=== PATIENT | male | born 1985 | race African-American/Black ===

== ENCOUNTER 2025-02-28 10:06 | Emergency (ER) | payer MEDICAID ==
[~2025-02-28] VITALS: Ht 185.4 cm; Wt 82.0 kg
[2025-02-28 10:10] VITALS: O2SAT 99
[2025-02-28 12:08] LABS: BASOPHILS % 0.6 % (0.0-2.0); EOSINOPHILS % 0.3 % (0.0-5.0); HEMATOCRIT. 40.9 % (42.0-52.0); HEMOGLOBIN. 13.8 g/dL (14.0-18.0); LYMPHOCYTES % 21.2 % (20.0-50.0); MEAN PLATELET VOLUME 8.2 fl (7.4-10.4); MONOCYTES % 10.8 % (2.0-8.0); NEUTROPHILS % 67.1 % (40.0-76.0); PLATELET 206 x1000/uL (130-400); RED BLOOD CELL COUNT 4.10 mill/uL (4.7-6.1); RED CELL DISTRIBUTION WIDTH 13.6 % (11.6-14.6)
[2025-02-28 12:25] LABS: CREATININE 0.7 mg/dL (0.6-1.3)
[2025-02-28 12:26] LABS: UREA NITROGEN BLOOD 6 mg/dL (9-23)
[2025-02-28 12:27] LABS: ASPARTATE AMINOTRANSFERASE 29 IU/L (<34); TROPONIN I HIGH SENSITIVITY < 4 ng/L (3.0-53)
[2025-02-28 12:28] LABS: BILIRUBIN DIRECT 0.4 mg/dL (<=3.0); BILIRUBIN TOTAL 1.3 mg/dL (0.1-1.0); INR 1.0; PROTEIN TOTAL 7.4 g/dL (6.0-8.3)
[2025-02-28 18:06] LABS: TROPONIN I HIGH SENSITIVITY < 4 ng/L (3.0-53)
[2025-02-28 19:00] VITALS: BP 118/56; PULSE 66; RESP 18; TEMP 36.8; O2SAT 100
== END 2025-02-28 19:18 | disposition left against medical advice (07) ==
LOC: ER 10:06 → EDBEDREQ 18:08 → EDBEDREQTM 18:08 → ER 19:18 → CMPBEDREQ 03-01 07:25
DX: R07.9 Chest pain, unspecified (principal); R06.02 Shortness of breath
CPT/HCPCS: 36415; 71045; 80048; 80076; 83880; 84484; 85025; 85379; 93005; 99285